=== PATIENT | female | born 1960 | race Caucasian/White ===

== ENCOUNTER → 2020-12-18 11:46 | Outpatient (CLI) | payer BC, SELFPAY ==
--- NOTE | ~2020-12-18 | US_ITS ---
EXAMINATION: US thyroid DATE: 12/18/2020 12:05 INDICATION: Thyroid nodule. TECHNIQUE: Multiple ultrasound images of the thyroid were obtained. COMPARISON: None. FINDINGS: The right thyroid lobe measures 3.6 x 1.4 x 1.3 cm. The left thyroid lobe measures 4.0 x 1.4 x 1.0 c m. In the left thyroid lobe, there are two 4 mm nodules. In the right thyroid lobe, there is a 4 mm nodule. In the right thyroid lobe, there is a 9 mm solid, hypoechoic, [id number]-[id number] nodule with smo oth margin without echogenic foci (TI-RADS TR4). IMPRESSION: 1. Small thyroid nodules, likely not clinically significant. No follow-up is needed. Reviewed, dictated and finalized at location B. [employer] IMPRESSION: 1. Small thyroid nodules, likely not clinically significant. No follow-up is ne eded.
== END ==
PROVIDERS: PCP Family Medicine Adolescent Medicine; Visit Provider Family Medicine Adolescent Medicine
DX: E04.2 Nontoxic multinodular goiter (principal)
CPT/HCPCS: 76536